=== PATIENT | male | born 1945 | race Caucasian/White ===

== ENCOUNTER → 2017-06-21 | Outpatient (CLI) | payer MEDICARE | END | disposition home or self-care (01) | LOC: CFH 10:32 | PROVIDERS: ATTEND Physician Assistant | DX: M51.36 Other intervertebral disc degeneration, lumbar region (principal); M25.78 Osteophyte, vertebrae; M48.07 Spinal stenosis, lumbosacral region | CPT/HCPCS: 72120; 72148 ==